=== PATIENT | female | born 1940 | race Caucasian/White ===

== ENCOUNTER → 2018-08-21 | Outpatient (CLI) | payer MEDICARE, OTHER ==
[~2018-08-21] MED LIST: ACET500T68 PO; ACYC-50 PO; ALCOHOL; ASCO-182 PO; ASPI-757 PO; ASPI1TAB35 PO; BORO1POW2 PO; BUS5 PO; BUSP10TA95 PO; CAFF200T69 PO; CALC500T6 PO; CELLUVISC; CHLO1CAP12 PO; CHOL10005 PO; CLON1 PO; CYAN50002 SL; CYCL-332 PO; CYCL10TA29 PO; DEXT1DRO4 OP; ENZY1CAP3 PO; EST42T PV; ESTR1POW41 MC; HYPR10GE4 OP; IBUP-56 PO; LEV25 PO; LOR5 PO; MAGN100T PO; NIFE20CA8 PO; NIFE60TA95 PO; ONDA4TAB PO; OXAZ10CA26 PO; OXYQ113.2 VG; POTA99TA6 PO; PRAM56OI; PSYL0.5234 PO; RANI-318 PO; RANI-366 PO; SENN-187 PO; SIME180C49 PO; TRIA10.8; [UNRECOGNIZED DRUG - CODE] PO; [UNRECOGNIZED DRUG - CODE] PO; [UNRECOGNIZED DRUG - CODE] TP; [UNRECOGNIZED DRUG - OTHER]; [UNRECOGNIZED DRUG - OTHER]; [UNRECOGNIZED DRUG - OTHER]; [UNRECOGNIZED DRUG - OTHER]; [UNRECOGNIZED DRUG - OTHER]
[2018-08-21 13:07] LABS: PLATELET COUNT, AUTOMATED 322 K/uL (150-450)
== END ==
LOC: LAB 12:54
PROVIDERS: ATTEND Family Medicine
DX: I10 Essential (primary) hypertension (principal)
CPT/HCPCS: 36415; 82040; 82247; 82310; 82374; 82435; 82565; 82947; 84075; 84132; 84155; 84295; 84450; 84460; 84520; 85025